=== PATIENT | male | born 2000 | race Caucasian/White ===

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

== ENCOUNTER 2024-02-24 22:59 | Day surgery (SDC) | payer BC, OTHER ==
[2024-02-24] MEDS: Glucagon,Human Recombinant 1 MG Vial IVPUSH ONE (23:17)
[2024-02-24] MEDS: Ondansetron 4 MG/2 ML SDV IVPUSH ONE (23:17)
[2024-02-24] MEDS: Sodium Chloride 0.9% 1,000 ML IV ONE (23:17)
[2024-02-24] MEDS: Water For Injection, Sterile 20 ML ONE (23:28)
[2024-02-24 23:30] LABS: BASOPHILS ABSOLUTE AUTO 0.07 K/uL (0.00-0.20); BASOPHILS PERCENT AUTO 0.8 % (0.0-1.0); EOSINOPHILS ABSOLUTE AUTO 0.56 K/uL (0.00-0.45); EOSINOPHILS PERCENT AUTO 6.1 % (0.0-6.0); HEMATOCRIT 49.4 % (42.0-52.0); HEMOGLOBIN 17.2 g/dL (14.0-18.0); IMMATURE GRAN ABSOLUTE AUTO 0.02 K/uL (0.00-0.05); IMMATURE GRAN PERCENT AUTO 0.2 % (0.0-0.4); LYMPHOCYTES ABSOLUTE AUTO 3.41 K/uL (1.00-4.80); LYMPHOCYTES PERCENT AUTO 37.2 % (24.0-44.0); MEAN CORPUSCULAR HEMOGLOBIN 28.3 pg (28.0-32.0); MEAN CORPUSCULAR HGB CONC 34.8 g/dL (32.0-36.0); MEAN CORPUSCULAR VOLUME 81.3 fL (83.0-99.0); MEAN PLATELET VOLUME 9.6 fL (9.4-12.4); MONOCYTES ABSOLUTE AUTO 0.59 K/uL (0.00-0.80); MONOCYTES PERCENT AUTO 6.4 % (0.0-8.0); NEUTROPHILS ABSOLUTE AUTO 4.51 K/uL (1.80-7.70); NEUTROPHILS PERCENT AUTO 49.3 % (41.0-71.0); PLATELET COUNT,PLT 288 K/uL (150-400); RED BLOOD CELL COUNT 6.08 M/uL (4.52-5.90); WHITE BLOOD CELL COUNT,WBC 9.16 K/uL (3.9-11.3)
[2024-02-24] MEDS: Water For Injection, Sterile 20 ML SDV INJECT STA (23:40)
[2024-02-24 23:53] LABS: A/G RATIO 1.3 (0.9-1.6); ALBUMIN 4.4 g/dL (3.4-5.0); BILIRUBIN TOTAL 0.4 mg/dL (0.2-1.0); CALCIUM 8.8 mg/dL (8.5-10.1); CARBON DIOXIDE,CO2 27.1 mmol/L (21.0-32.0); CREATININE 1.2 mg/dL (0.8-1.3); EST CRCL DRUG DOSING (CG) 93.42 mL/min; PROTEIN TOTAL,TP 7.8 g/dL (6.4-8.2)
[2024-02-25] MEDS ORDERED: Propofol 200 MG/20 ML SDV ONE (00:11)
[2024-02-25] MEDS ORDERED: Ketorolac 30 MG/ML SDV ONE (00:13)
[2024-02-25] MEDS ORDERED: Ondansetron 4 MG/2 ML SDV ONE (00:13)
[2024-02-25] MEDS ORDERED: Succinylcholine/Sod PF 100 MG/5 ML SYRINGE IV ONE (01:20)
== END 2024-02-25 02:10 ==
LOC: MW.ED 22:59 → MW.SDS 23:55 → MW.MS 23:55 → MW.SDS 02-25 02:10
PROVIDERS: ATTEND Surgery
DX: T18.128A Food in esophagus causing other injury, initial encounter (principal); W44.8XXA Other foreign body entering into or through a natural orifice, initial encounter
CPT/HCPCS: 36415; 43247; 80053; 85025; 96361; 96374; 96375; 99284; J0131; J0330; J1611; J1885; J2405; J2704; J7030; 00731; 99283; J3490